=== PATIENT | male | born 1990 | race Caucasian/White ===

== ENCOUNTER 2018-04-05 10:25 | Emergency (ER) | payer OTHER | END 2018-04-05 11:35 | disposition home or self-care (01) | LOC: M ED 10:25 | DX: S20.211A Contusion of right front wall of thorax, initial encounter (principal); S40.011A Contusion of right shoulder, initial encounter; W22.8XXA Striking against or struck by other objects, initial encounter; Y92.138 Other place on military base as the place of occurrence of the external cause; Y99.1 Military activity | CPT/HCPCS: 73000 ==